=== PATIENT | female | born 1950 ===

== ENCOUNTER → 2018-12-01 13:48 | Outpatient (REF) | payer OTHER, SELFPAY | LOC: LAB 13:48 | PROVIDERS: Visit Provider Dermatology MOHS-Micrographic Surgery | DX: T81.40XA Infection following a procedure, unspecified, initial encounter (principal); Z48.817 Encounter for surgical aftercare following surgery on the skin and subcutaneous tissue | CPT/HCPCS: 87070; 87077; 87205 ==